=== PATIENT | female | born 1980 | race Two or more races ===

== ENCOUNTER 2022-08-12 13:24 | Emergency (ER) | payer MEDICAID, OTHER ==
[~2022-08-12] VITALS: Ht 144.8 cm; Wt 61.5 kg
[2022-08-12 14:03] VITALS: BP 127/64
[2022-08-12] MEDS ORDERED: HYDROcodone-ACET 10/325MG TAB PO ONE (14:15)
[2022-08-12] MEDS ORDERED: HYDR-4902 PO (14:50)
[2022-08-12] MEDS ORDERED: IBUP800T26 PO (14:50)
== END 2022-08-12 14:51 | disposition home or self-care (01) ==
LOC: ER 13:24
DX: M47.812 Spondylosis without myelopathy or radiculopathy, cervical region (principal); M62.838 Other muscle spasm
CPT/HCPCS: 72040